=== PATIENT | male | born 1960 | race Caucasian/White ===

== ENCOUNTER 2019-09-23 19:25 | Emergency (ER) | payer MEDICAID, OTHER ==
[~2019-09-23] VITALS: Ht 165.1 cm; Wt 68.0 kg
[2019-09-23] MEDS ORDERED: [UNRECOGNIZED DRUG - REMARK] (19:36)
[2019-09-23] MEDS ORDERED: [UNRECOGNIZED DRUG - REMARK] (19:36)
[2019-09-23] MEDS ORDERED: [UNRECOGNIZED DRUG - REMARK] (19:36)
--- NOTE | 2019-09-23 19:41 | NUR ---
Dr. Caraballo at bedside for MSE.
[2019-09-23] MEDS ORDERED: ONDANSETRON ODT 4 MG TAB.RAPDIS ONE (19:53)
[2019-09-23] MEDS ORDERED: HYDROMORPHONE 1 MG/1 ML DISP.SYRIN ONE (19:53)
[2019-09-23] MEDS ORDERED: INDOMETHACIN 25 MG CAPSULE ONE (19:53)
[2019-09-23] MEDS ORDERED: COLCHICINE 0.6 MG TABLET ONE (19:54)
[2019-09-23] MEDS ORDERED: COLCHICINE 0.6 MG TABLET PO ONE (20:00)
[2019-09-23] MEDS ORDERED: HYDROMORPHONE 1 MG/1 ML DISP.SYRIN IM ONE (20:00)
[2019-09-23] MEDS ORDERED: INDOMETHACIN 25 MG CAPSULE PO ONE (20:00)
[2019-09-23] MEDS ORDERED: ONDANSETRON ODT 4 MG TAB.RAPDIS SL ONE (20:00)
--- NOTE | 2019-09-23 20:07 | NUR ---
Patient discharged to home in stable condition. Written and verbal after care instructions given. Patient verbalizes understanding of instructions. Stressed follow up or return to ER for worsening s/s. Patient ambulated out of ER with steady gait, no acute signs of distress, VSS, all belongings taken.
[2019-09-23 20:08] VITALS: BP 165/70
== END 2019-09-23 20:09 | disposition home or self-care (01) ==
LOC: ER 19:25
DX: M10.031 Idiopathic gout, right wrist (principal)
CPT/HCPCS: 29125; 96372; 99284; J1170; A4663; Q0162